=== PATIENT | female | born 1980 | race Caucasian/White ===

== ENCOUNTER 2017-07-19 11:30 | Inpatient (IN) | payer OTHER ==
[2017-07-19] MEDS ORDERED: TERBUTALINE SULFATE 1 MG/ML VIAL IV PRN (12:46)
[2017-07-19] MEDS ORDERED: EPSOM SALT 454 GM TP PRN (12:46)
[2017-07-19] MEDS ORDERED: OLIVE OIL 118 ML BTL MISC PRN (12:46)
[2017-07-19] MEDS ORDERED: OXYTOCIN 20 UNIT in LR 1,000 ML IV PRN (12:46)
--- NOTE | 2017-07-19 12:48 | PDGENHP ---
History and Physical History and Physical: HPI: Patient is a 36 yo that presents to L&D with complaints of contractions since 0100, worse since 0900. She states they are approx every5 min. She denies any LOF. She does report some bloody mucous. She reports +FM. She denies any headaches, visual changes, epigastric pain. EDC:07/18/17 which is based on LMP: 10/10/16 which is known and consistent with Ultrasound at 8 weeks. Her is complicated by: AMA, Rh Negative, rubella NI Review of Systems: Constitutional: Denies any fever, chills, or fatigue HEENT: denies any visual changes, difficulty swallowing, hearing loss Cardiovascular: Denies any chest pain, palpitations, leg swelling Respiratory: denies any cough, wheezing, or shortness of breathe GI: Denies any nausea, vomiting, diarrhea, constipation : denies any dysuria, urgency, frequency, vaginal bleeding Musculoskeletal: denies any muscle or bone pain Skin: denies any rashes Neuro: denies any headache, seizures, lightheadedness, dizziness, or loss of consciousness Psychiatric: denies any depression, anxiety, or SI/HI thoughts HISTORY: Previous OB history: x1, 7#11, TABx1 Past medical history: h/o abnl pap with LEEP, rubella NI Past surgical history: oral surgery Medications: PNV, rhogam Allergies (list reaction): NKDA LABS: Rh: A Neg ABS: Neg Rubella: Non-Immune HbsAg: NR HIV: NR VDRL: NR 1hr: 101 GC: Neg Chlamydia: Neg Pap: Normal GBS: Neg PHYSICAL EXAM: Constitutional: WN, A&Ox3 HEENT: normocephalic atraumatic, supple Heart: RRR, no murmur Chest: CTA-B Abdomen: Soft, nontender, gravid SVE: 3/70/-2 Extremities: trace edema, negative homans sign Neuro: grossly normal Psych: normal affect assessment: Reassuring FHTs, baseline 125 +accels, no decels, moderate variability Contractions: toco q 5 Assessment: 1) [id number] with IUP@40-1wks 2) early labor 3) GBS negative 4) Cat 1 FHR tracing Plan: 1) Admit to L&D 2) expectant management 3) will start pitocin PRN 4) pain management PRN 5) expect
[2017-07-19 13:35] LABS: PLATELET COUNT 127 10^3/uL (150-400)
[2017-07-19] MEDS ORDERED: LIDOCAINE 1% 300 MG/30 ML SDV ONE (14:22)
[2017-07-19] MEDS ORDERED: AMMONIA AROMATIC 1 EACH AMP IH ONE (14:22)
[2017-07-19] MEDS ORDERED: OLIVE OIL 118 ML BTL ONE (14:22)
[2017-07-19] MEDS ORDERED: TERBUTALINE SULFATE 1 MG/ML VIAL ONE (14:23)
[2017-07-19] MEDS ORDERED: MISOPROSTOL 200 MCG TAB ONE (14:23)
[2017-07-19] MEDS ORDERED: OXYTOCIN 10 UNIT/ML VIAL ONE (14:23)
[2017-07-19] MEDS: LR 1,000 ML IV PRN ×2 (14:53→15:51)
[2017-07-19] MEDS ORDERED: BUPIVACAINE 0.25% 30 ML SDV ONE (15:00)
[2017-07-19] MEDS ORDERED: fentaNYL 2MCG/ML/BUP 0.1% RTU 100 ML BAG EP ONE (15:00)
--- NOTE | 2017-07-19 16:01 | PDANEPAE ---
ANE Past Medical History - Cardiovascular History Hx Hypertension: No Hx Arrhythmias: No Hx Chest Pain: No Hx Coronary Artery / Peripheral Vascular Disease: No Hx CHF / Valvular Disease: No Hx Palpitations: No - Pulmonary History Hx COPD: No Hx Asthma/Reactive Airway Disease: No Hx Recent Upper Respiratory Infection: No Hx Oxygen in Use at Home: No Hx Sleep Apnea: No - Neurologic History Hx Cerebrovascular Accident: No Hx Seizures: No Hx Dementia: No - Endocrine History Hx Diabetes: No Hypothyroid: No Hyperthyroid: No Obesity: no - Renal History Hx Renal Disorders: No - Liver History Hx Hepatic Disorders: No - Chronic Pain History Chronic Pain: No ANE Review of Systems Review of Systems: ANE Patient History - Allergies Allergies/Adverse Reactions: No Known Allergies Allergy (Unverified 03/13/15 13:02) - Home Medications Home Medications: Acetaminophen [Pain Reliever] 500 mg PO PRN 07/19/17 [Last Taken Unknown] Vit27&Calcium/Iron/FA [ Rx 1 Tablet (RX)] 1 each PO DAILY 07/19 [Last Taken 07/17/17 21:00] - Smoking Hx Smoking Status: Former smoker ANE Labs/Vital Signs - Labs Result Diagrams: 07/19/17 12:55 - Vital Signs Height: 162.56 cm Weight: 58.513 kg ANE Physical Exam - Airway Neck exam: FROM Mallampati Score: Class 1 Mouth exam: normal dental/mouth exam - Pulmonary Pulmonary: no respiratory distress - Cardiovascular Cardiovascular: regular rate and rhythym - ASA Status ASA Status: II ANE Anesthesia Plan Anesthesia Plan: epidural Urgent/Emergent Case: Anes eval completed preop but documented later for safe timely pt care
[2017-07-19] MEDS ORDERED: ONDANSETRON 4 MG/2 ML VIAL IVP PRN (16:03)
[2017-07-19] MEDS ORDERED: PHENYLEPHRINE HCL 100 MCG/ML SYR IVP PRN (16:03)
[2017-07-19] MEDS ORDERED: METOCLOPRAMIDE 10 MG/2 ML VIAL IVP PRN (16:03)
--- NOTE | 2017-07-19 16:26 | OBPROG ---
Labor Progress Note Assessment/Plan: Assessment: [id number] with IUP@40-1wks (L/8) early labor cat 1 FHR tracing GBS Neg ROBB in place AROM- clear Plan: expectant management reassess 2-4hr/PRN anticipate 07/19/17 16:22 Subjective/Intrapartum Course: 07/19/17 16:24 Pt doing well, comfortable with ROBB. She reports having some pain on right side. She is breathing through contractions. FOB @ BS, supportive. Objective: 07/19/17 12:55 Patient ABO/Rh A NEGATIVE 07/19/17 12:55 - SVE Dilation (cm): 4 Effacement (%): 75 Station: -2 Membranes: AROM Amniotic Fluid Color: Clear - Contraction Pattern Assessment Current Contraction Pattern: Regular - FHR Assessment [place] FHR (bpm): 125 FHR Pattern Variability: Moderate FHR Category: 1 - Procedures Non-surgical Procedures: Amniotomy - AP Antepartum Course: 07/19/17 16:28 routine PNC with BWC; AMA, rh negative (rhogam 05/08/17), rubella nonimmune 07/19/17 16:29 - Physical Exam General Appearance: WD/WN, alert, no apparent distress Abdomen: non-tender, soft Skin: normal color, warm/dry Oxytocin Orders Assessment - Pre-Induction/Augmentation Assessment Gestational Age: 40 week(s) and 1 day(s) ICD10 Worksheet Patient Problems: Problems Problem Status Onset Normal labor Acute Normal labor and delivery Acute Spontaneous vaginal delivery Acute - ICD10 Problem Qualifiers (1) Normal labor and delivery (2) Normal labor
[2017-07-19] MEDS ORDERED: LR 500 ML IV SCH (16:30)
[2017-07-19] MEDS ORDERED: fentaNYL 2MCG/ML/BUP 0.1% RTU 100 ML EP SCH (16:30)
[2017-07-19] MEDS ORDERED: HEMABATE 250 MCG/1 ML AMP IM ONE (18:27)
[2017-07-19] MEDS ORDERED: MISOPROSTOL 200 MCG TAB PR ONE (18:55)
[2017-07-19] MEDS ORDERED: ACETAMINOPHEN 500 MG TAB PO ONE (18:55)
[2017-07-19] MEDS ORDERED: METHYLERGONOVINE MAL 0.2 MG/ML INJ IM ONE (18:55)
[2017-07-19] MEDS ORDERED: ACETAMINOPHEN 500 MG TAB ONE (19:19)
[2017-07-19 19:24] LABS: PLATELET COUNT 113 10^3/uL (150-400)
[2017-07-19] MEDS: IBUPROFEN 600 MG TAB PO PRN (19:27)
[2017-07-19] MEDS ORDERED: CEFAZOLIN 1 GM/DEXTROSE/50 ML BAG IV ONE (19:38)
[2017-07-19] MEDS ORDERED: ceFAZolin 2 GM in D5W 100 ML IV SCH (19:45)
[2017-07-19] MEDS: ceFAZolin 2 GM/DEXTROSE 100 ML IV SCH (19:59)
--- NOTE | 2017-07-19 22:02 | OBDEL ---
Info Type: Vaginal Presentation at Delivery: Vertex L&D Analgesia/Anesthesia Type: Epidural GBS+: No Intrapartum Medications: Generic Name Dose Route Start Last Admin Trade Name Freq PRN Reason Stop Dose Admin Lactated Ringer's 1,000 mls @ 0 mls/hr 07/19/17 12:46 07/19/17 15:51 Lr IV 07/20/17 12:45 1,000 mls PRN PRN Administration SEE PROTOCOL CONDITIONS Protocol Per Protocol Cefazolin Sodium/Dextrose 100 mls @ 200 mls/hr 07/19/17 20:00 07/19/17 19:59 Ancef 2 Gm (Premix) IV 07/20/17 14:29 100 mls Q6H ELBA Administration Ibuprofen 600 mg 07/19/17 12:46 07/19/17 19:27 Motrin PO 01/15/18 12:45 600 mg Q6HRS PRN Administration post , inflammation Ondansetron HCl 4 mg 07/19/17 16:03 07/19/17 18:28 Zofran IVP 07/20/17 16:02 4 mg Q4HRS PRN Administration Nausea/Vomiting, Can't Take PO Discontinued Medications Generic Name Dose Route Start Last Admin Trade Name Freq PRN Reason Stop Dose Admin Acetaminophen 1,000 mg 07/19/17 18:55 07/19/17 19:27 Tylenol PO 07/19/17 18:56 1,000 mg ONCE ONE Administration Oxytocin 20 unit/ Lactated 1,002 mls @ 150 mls/hr 07/19/17 12:46 07/19/17 20: 15 Ringer's IV 1,002 mls PRN PRN Administration Post- bleeding Fentanyl/Bupivacaine HCl 100 mls @ 0 mls/hr 07/19/17 16:30 07/19/17 15:15 Fentanyl/Bupivacaine/Ns 2 Mcg/Ml 0.1% (Premix EP 07/29/17 16:29 100 mls CONT ELBA Administration Protocol As Directed Methylergonovine Maleate 0.2 mg 07/19/17 18:55 07/19/17 18:56 Methergine IM 07/19/17 18:56 0.2 mg ONCE ONE Administration Misoprostol 1,000 mcg 07/19/17 18:55 07/19/17 18:57 Cytotec NM 07/19/17 18:56 1,000 mcg EDNOW ONE Administration [place] Oil 118 ml 07/19/17 12:46 07/19/17 18:15 Sweet Oil MISC 01/15/18 12:45 118 ml ONCE PRN Administration perineal massage Phenylephrine HCl 100 mcg 07/19/17 16:03 07/19/17 16:37 Neosynephrine IVP 01/15/18 16:02 100 mcg .Q2M PRN Administration Hypotension - Hospital Course Intrapartum: 07/19/17 16:24 Pt doing well, comfortable with ROBB. She reports having some pain on right side. She is breathing through contractions. FOB @ BS, supportive. Indications for Delivery: Spontaneous Labor Vaginal Delivery - Delivery Provider Delivery Physician/CNM: Екатерина Sandoval - Labor and Delivery Onset of Contractions Date: 07/19/17 Onset of Contractions Time: 09:30 Onset of Contractions Type: Spontaneous Rupture of Membranes Date: 07/19/17 Rupture of Membranes Time: 15:56 Rupture of Membranes Type: Artificial Amniotic Fluid Color: Clear, Meconium Stained Dilation Complete Date: 07/19/17 Dilation Complete Time: 16:54 Placenta Delivery Date: 07/19/17 Placenta Delivery Time: 18:50 Total Hours of Labor: 9 Non-surgical Procedures: Amniotomy Vaginal Sponge Count Correct: Yes Vaginal Needle Count Correct: Yes Vaginal Sweep Performed: Yes EBL: 1000 Delivery Events: Post Hemorrhage (approx 1000mL) [place] Data ANAHI: 07/18/17 Gestational Age: 40 week(s) and 1 day(s) [place] Delivery Date: 07/19/17 Delivery Time: 18:43 Sex of : Male Score (1 Min): 8 Score (5 Min): 9 ICD10 Worksheet Patient Problems: Problems Problem Status Onset Normal labor Acute Normal labor and delivery Acute hemorrhage Acute Spontaneous vaginal delivery Acute - ICD10 Problem Qualifiers (1) Normal labor and delivery (2) Normal labor (3) hemorrhage
[2017-07-19] MEDS ORDERED: SIMETHICONE 80 MG TAB CHEW PO PRN (22:04)
[2017-07-19] MEDS ORDERED: HYDROCORTISONE 0.5% CREAM TP PRN (22:04)
[2017-07-19] MEDS ORDERED: HYDROCODONE/APAP 5/325 TAB PO PRN (22:04)
[2017-07-19] MEDS ORDERED: DOCUSATE SODIUM 100 MG CAP PO PRN (22:04)
[2017-07-19] MEDS: METHYLERGONOVINE MAL 0.2 MG TAB PO SCH (23:20)
[2017-07-20] MEDS: IBUPROFEN 600 MG TAB PO PRN ×4 (01:45→20:35)
[2017-07-20] MEDS: ceFAZolin 2 GM/DEXTROSE 100 ML IV SCH ×3 (01:56→14:18)
[2017-07-20] MEDS: METHYLERGONOVINE MAL 0.2 MG TAB PO SCH ×4 (04:23→22:21)
--- NOTE | 2017-07-20 08:23 | OBPP ---
Progress Note Assessment/Plan: Assessment: post day 1 s/p and hemorrhage Plan: 07/20/17 10:10 Continue current management Continue methergine continue iron Ibruprofen and [place] for pain 07/20/17 10:15 Subjective/ Course: 07/20/17 10:13 Continues to have cramping pain. and tolerating PO. Objective: 07/20/17 04:30 Patient ABO/Rh A NEGATIVE 07/19/17 19:00 Temp Pulse Resp BP Pulse Ox 36.3 C 65 16 122/67 H 97 07/20/17 01:30 07/20/17 01:30 07/20/17 01:30 07/20/17 01:30 07/20/17 01:30 Uterine Position/Fundal Height: Umbilicus -1 Uterine Tone: Firm Physical Exam - Physical Exam Respiratory: chest non-tender Abdomen: normal bowel sounds, non-tender, soft Extremities: normal range of motion, non-tender Skin: normal color Neuro/Psych: no motor/sensory deficits, alert, normal mood/affect, oriented x 3
[2017-07-21] MEDS: IBUPROFEN 600 MG TAB PO PRN ×2 (04:24→10:47)
[2017-07-21] MEDS: METHYLERGONOVINE MAL 0.2 MG TAB PO SCH (04:25)
[2017-07-21 08:32] VITALS: BP 114/75; PULSE 50; RESP 15; TEMP 97.9; O2SAT 95
--- NOTE | 2017-07-21 09:10 | OBPP ---
Progress Note Assessment/Plan: Assessment: post day 2 s/p and hemorrhage Plan: 07/20/17 10:10 Continue current management Continue methergine continue iron Ibruprofen and [place] for pain 07/20/17 10:15 07/21/17 09:08 Discharge home today Ibuprofen and [place] for pain Subjective/ Course: 07/20/17 10:13 Continues to have cramping pain. and tolerating PO. Objective: 07/20/17 04:30 Patient ABO/Rh A NEGATIVE 07/19/17 19:00 Temp Pulse Resp BP Pulse Ox 36.6 C 50 L 15 114/75 95 07/21/17 08:00 07/21/17 08:00 07/21/17 08:00 07/21/17 08:00 07/21/17 08:00 Uterine Position/Fundal Height: Umbilicus -2 Uterine Tone: Firm Physical Exam - Physical Exam Respiratory: chest non-tender Abdomen: normal bowel sounds, non-tender, flatus Extremities: normal range of motion, non-tender Skin: normal color, warm/dry Neuro/Psych: no motor/sensory deficits, alert, normal mood/affect, oriented x 3
--- NOTE | 2017-07-21 09:14 | OBGCSDC ---
General Delivery Information - General Info : 3 Para: 2 Abortions: 1 Type: Vaginal L&D Analgesia/Anesthesia Type: Epidural Admission Date: 07/19/17 Labs: Patient ABO/Rh A NEGATIVE 07/19/17 19:00 Hct 29.1 % (38.0-47.0) L 07/20/17 04:30 - Hospital Course Antepartum: 07/19/17 16:28 routine PNC with BWC; AMA, rh negative (rhogam 05/08/17), rubella nonimmune 07/19/17 16:29 Intrapartum: 07/19/17 16:24 Pt doing well, comfortable with ROBB. She reports having some pain on right side. She is breathing through contractions. FOB @ BS, supportive. : 07/20/17 10:13 Continues to have cramping pain. and tolerating PO. Vaginal - Delivery Provider Delivery Physician/CNM: Екатерина Sandoval - Diagnosis Labor: Spontaneous Rupture of Membranes Type: Artificial Amniotic Fluid Color: Clear, Meconium Stained Delivery Events: Post Hemorrhage (approx 1000mL) - Procedures Non-surgical Procedures: Amniotomy - Delivery Non-surgical Procedures: Amniotomy EBL: 1000 [place] Data ANAHI: 07/18/17 Gestational Age: 40 week(s) and 3 day(s) [place] Delivery Date: 07/19/17 Delivery Time: 18:43 Sex of : Male Score (1 Min): 8 Score (5 Min): 9 Discharge Information - Discharge Information Prescriptions: Hydrocodone/APAP 5/325 [[place] 5/325 (*)] 1 - 2 tab PO Q4HRS PRN #30 tab PRN Reason: Pain, Moderate Ibuprofen [Motrin (*)] 600 mg PO Q6HRS PRN #30 tab PRN Reason: post , inflammation Docusate Sodium [Colace 100 MG (*)] 100 mg PO BID PRN #30 cap PRN Reason: Constipation Condition: Good Instruction/Follow Up: One Week
== END 2017-07-21 14:45 | disposition home or self-care (01) | DRG 774 ==
LOC: FLD 11:30 → OBSVTOIN 11:30 → FOB 22:30
PROVIDERS: ADMIT Advanced Practice Midwife; ATTEND Obstetrics & Gynecology
PROC: 10907ZC Drainage of Amniotic Fluid, Therapeutic from Products of Conception, Via Natural or Artificial Opening (ICD-10-PCS; principal; 2017-07-19)
PROC: 10E0XZZ Delivery of Products of Conception, External Approach (ICD-10-PCS; principal; 2017-07-19)
DX: O48.0 Post-term pregnancy (principal); O77.0 Labor and delivery complicated by meconium in amniotic fluid; O72.1 Other immediate postpartum hemorrhage; Z3A.40 40 weeks gestation of pregnancy; Z37.0 Single live birth
CPT/HCPCS: J0690; J2405; J3105

== ENCOUNTER → 2018-05-02 | Outpatient (CLI) | payer OTHER | LOC: FIMAGING 10:15 | PROVIDERS: ATTEND Advanced Practice Midwife | DX: O09.521 Supervision of elderly multigravida, first trimester (principal); Z3A.12 12 weeks gestation of pregnancy ==

== ENCOUNTER → 2018-06-27 | Outpatient (CLI) | payer OTHER | LOC: FIMAGING 09:41 | PROVIDERS: ATTEND Advanced Practice Midwife | DX: O09.522 Supervision of elderly multigravida, second trimester (principal); O26.892 Other specified pregnancy related conditions, second trimester; Z3A.20 20 weeks gestation of pregnancy ==

== ENCOUNTER → 2018-09-16 | Outpatient (CLI) | payer OTHER | LOC: FIMAGING 09:08 | PROVIDERS: ATTEND Advanced Practice Midwife | DX: O09.523 Supervision of elderly multigravida, third trimester (principal); Z3A.31 31 weeks gestation of pregnancy ==

== ENCOUNTER 2018-11-02 06:00 | Inpatient (IN) | payer OTHER ==
[2018-11-02] MEDS ORDERED: TERBUTALINE SULFATE 1 MG/ML VIAL IV PRN (07:31)
[2018-11-02] MEDS ORDERED: MISOPROSTOL 200 MCG TAB PO PRN (07:31)
[2018-11-02] MEDS ORDERED: LIDOCAINE 1% 300 MG/30 ML SDV SC PRN (07:31)
[2018-11-02] MEDS ORDERED: EPSOM SALT 454 GM TP PRN (07:31)
[2018-11-02] MEDS ORDERED: LR 1,000 ML IV PRN (07:31)
[2018-11-02] MEDS ORDERED: OLIVE OIL 118 ML BTL MISC PRN (07:31)
[2018-11-02] MEDS ORDERED: IBUPROFEN 600 MG TAB PO PRN (07:31)
[2018-11-02] MEDS ORDERED: OXYTOCIN/RINGERS LACTATE 1,000 ML IV PRN (07:31)
[2018-11-02] MEDS ORDERED: AMMONIA AROMATIC 1 EACH AMP IH PRN (07:31)
[2018-11-02] MEDS ORDERED: MISOPROSTOL 50 MCG CAP PO PRN (07:33)
[2018-11-02 08:26] LABS: PLATELET COUNT 162 10^3/uL (150-400)
--- NOTE | 2018-11-02 08:37 | PDGENHP ---
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 EDC: 11/14/18 which is based on LMP 02/07/18 and early Ultrasound at 9 weeks. Her is complicated by: AMA, rh neg (rhogam on 08/23/09), short interval between pregnancies, Hx of leep in 2010, rubella non-immune, history of PP hemorrhage with last delivery. Review of Systems: Constitutional: Denies any fever, chills, or fatigue HEENT: denies any visual changes, difficulty swallowing, hearing loss Cardiovascular: Denies any chest pain, palpitations, leg swelling Respiratory: denies any cough, wheezing, or shortness of breath GI: Denies any nausea, vomiting, diarrhea, constipation : denies any dysuria, urgency, frequency, vaginal bleeding Musculoskeletal: denies any muscle or bone pain Skin: denies any rashes Neuro: denies any headache, seizures, lightheadedness, dizziness, or loss of consciousness Psychiatric: denies any depression, anxiety, or SI/HI thoughts HISTORY: Previous OB history: 03/2015 7#13 oz boy, 07/2017 7#13 oz boy Social history: , SAHM Family history: non-contributory Past medical history: hx HSV I Past surgical history: none Medications: PNV, fish oil Allergies (list reaction): NKDA LABS: Rh: A- ABS: Neg Rubella: Non-Immune HbsAg: NR HIV: NR VDRL: NR 1hr: 80 GC: Neg Chlamydia: Neg Pap: Normal GBS: neg BMI: (prepreg) 19 PHYSICAL EXAM: Constitutional: WN, A&Ox3 HEENT: normocephalic atraumatic, supple Heart: RRR, no murmur Chest: CTA-B Skin: warm, dry, intact Abdomen: Soft, nontender, gravid SVE: not performed Extremities: trace edema, negative homans sign Neuro: grossly normal Psych: normal affect assessment: FHT baseline 125, +accels, no decels, moderate variability Contractions: toco irregular Assessment: 1) 38 yo with IUP@ 38.3 weeks 2) GBS neg 3) Cat 1 FHR tracing 4) induction prior to 39 weeks d/t MFM recommendation 2/2 umbilical cord varices seen on u/s at 38 weeks. Plan: 1) Admit to L&D 2) Cervical ripening 3) Pitocin augmentation 4) ROBB as desired 5) Anticipate
[2018-11-02] MEDS ORDERED: fentaNYL 2MCG/ML/BUP 0.1% RTU 100 ML BAG EP ONE (17:10)
[2018-11-02] MEDS ORDERED: BUPIVACAINE 0.25% 10 ML SDV ONE (17:10)
--- NOTE | 2018-11-02 17:24 | OBPROG ---
Labor Progress Note Assessment/Plan: Assessment: 38yo with IUP@ 38-2wks IOL 2/2 umbilical varicosity AMA h/o PPH cat 1 FHR tracing Plan: AROM once comfortable with ROBB pitocin PRN anticipate 11/02/18 17:20 Subjective/Intrapartum Course: 11/02/18 17:24 Pt doing ok. she is breathing through contractions, but states they are 3/10. She denies any LOF, VB. She desires ROBB prior to AROM. Objective: 11/02/18 08:00 Patient ABO/Rh A NEGATIVE 11/02/18 08:00 - SVE Dilation (cm): 6 Effacement (%): 50 Station: -2 - Contraction Pattern Assessment Current Contraction Pattern: Regular - FHR Assessment [place] FHR (bpm): 145 FHR Pattern Variability: Moderate FHR Category: 1 Oxytocin Orders Assessment - Pre-Induction/Augmentation Assessment Gestational Age: 38 week(s) and 2 day(s) ICD10 Worksheet Patient Problems: Problems Problem Status Onset AMA (advanced maternal age) multigravida 35+ Acute Encounter for induction of labor Acute complicated by umbilical cord varix, antepartum Acute Short interval between pregnancies affecting , antepartum Acute Normal labor Acute - ICD10 Problem Qualifiers (1) Encounter for induction of labor (2) AMA (advanced maternal age) multigravida 35+ (3) Short interval between pregnancies affecting , antepartum (4) complicated by umbilical cord varix, antepartum
[2018-11-02] MEDS ORDERED: PHENYLEPHRINE HCL 100 MCG/ML SYR IVP PRN (17:56)
[2018-11-02] MEDS ORDERED: NALOXONE HCL 0.4 MG/ML INJ IVP PRN (17:56)
[2018-11-02] MEDS ORDERED: ONDANSETRON 4 MG/2 ML VIAL IVP PRN (17:56)
--- NOTE | 2018-11-02 17:58 | PREANESOB ---
Obstetric Pre-Anesthesia Info - General Info : 4 Para: 2 ANAHI: 11/14/18 Gestational Age: 38 week(s) and 2 day(s) - Info Status: Full Term FHR Pattern: Reassuring - Labor Status Cervical Dilation per last OB SVE: 6 Station per last OB SVE: -2 Indications for Labor Analgesia: Pain Control Labor Epidural: Proposed Anesthesia Allergies/Adverse Reactions: Allergy/AdvReac Type Severity Reaction Status Date / Time No Known Allergies Allergy Unverified 03/13/15 13:02 Home Medications: Medication Instructions Recorded Ibuprofen [Motrin (*)] 600 mg PO Q6 PRN #0 tab 03/15/15 Acetaminophen [Pain Reliever] 500 mg PO PRN 07/19/17 Vit27&Calcium/Iron/FA 1 each PO DAILY 07/19/17 [ Rx 1 Tablet (RX)] Docusate Sodium [Colace 100 MG (*)] 100 mg PO BID PRN #30 cap 07/21/17 Hydrocodone/APAP 5/325 [[place] 1 - 2 tab PO Q4HRS PRN #30 tab 07/21/17 5/325 (*)] Ibuprofen [Motrin (*)] 600 mg PO Q6HRS PRN #30 tab 07/21/17 Visit Medications: Generic Name Dose Route Start Last Admin Trade Name [place] PRN Reason Stop Dose Admin Ammonia (Aromatic Spirit) 1 each 11/02/18 07:31 Ammonia Aromatic IH 11/12/18 07:30 ONCE PRN Fainting Lactated Ringer's 1,000 mls @ 0 mls/hr 11/02/18 07:31 Lr IV 11/03/18 07:30 PRN PRN SEE PROTOCOL CONDITIONS Protocol Per Protocol Oxytocin/Lactated Ringer's 1,000 mls @ 0 mls/hr 11/02/18 07:31 Pitocin 20 Units/Lr (Premix) IV PRN PRN Post bleeding As Directed Fentanyl/Bupivacaine HCl 100 mls @ 0 mls/hr 11/02/18 18:00 Fentanyl/Bupivacaine/Ns 2 Mcg/Ml 0.1% (Premix EP 11/12/18 17:59 CONT ELBA Protocol As Directed Lactated Ringer's 500 mls @ 0 mls/hr 11/02/18 18:00 Lr IV 05/01/19 17:59 CONT ELBA As Directed Ibuprofen 600 mg 11/02/18 07:31 Motrin PO ONCE PRN post , pain Lidocaine HCl 300 mg 11/02/18 07:31 Lidocaine Hcl 1% SC 05/01/19 07:30 ONCE PRN episiotomy Magnesium Sulfate 454 gm 11/02/18 07:31 Epsom Salt TP 05/01/19 07:30 Q1H PRN perineal discomfort Misoprostol 800 - 1,000 mcg 11/02/18 07:31 Cytotec PO 05/01/19 07:30 ONCE PRN Vaginal Atony/Bleeding Misoprostol 50 mcg 11/02/18 07:33 11/02/18 11:13 Cytotec PO 05/01/19 07:32 50 mcg Q4H PRN Administration cervical ripening Naloxone HCl 0.4 mg 11/02/18 17:56 Narcan IVP 05/01/19 17:55 PRN PRN Respiratory depression [place] Oil 118 ml 11/02/18 07:31 Sweet Oil MISC 05/01/19 07:30 ONCE PRN perineal massage Ondansetron HCl 4 mg 11/02/18 17:56 Zofran IVP 11/03/18 17:55 Q4HRS PRN Nausea/Vomiting, Can't Take PO Terbutaline Sulfate 0.25 mg 11/02/18 07:31 Brethine IV 05/01/19 07:30 ONCE PRN Tachysystole Discontinued Medications Generic Name Dose Route Start Last Admin Trade Name Freq PRN Reason Stop Dose Admin Bupivacaine HCl Confirm 11/02/18 17:10 Sensorcaine 0.25% Sdv Administered 11/02/18 17:11 Dose 10 ml .ROUTE .STK-MED ONE Fentanyl/Bupivacaine HCl Confirm 11/02/18 17:10 Fentanyl/Bupivacaine/Ns 2 Mcg/Ml 0.1% (Premix Administered 11/02/18 17:11 Dose 100 ml EP .STK-MED ONE - Vital Signs Height/Weight (Nursing): Height 162.56 cm Weight 57.153 kg Labs: 11/02/18 08:00 Patient ABO/Rh A NEGATIVE 11/02/18 08:00
[2018-11-02] MEDS ORDERED: fentaNYL 2MCG/ML/BUP 0.1% RTU 100 ML EP SCH (18:00)
[2018-11-02] MEDS ORDERED: LR 500 ML IV SCH (18:00)
[2018-11-02] MEDS ORDERED: LIDOCAINE 1% 300 MG/30 ML SDV ONE (18:42)
[2018-11-02] MEDS ORDERED: OLIVE OIL 118 ML BTL MISC ONE (18:42)
[2018-11-02] MEDS ORDERED: AMMONIA AROMATIC 1 EACH AMP IH ONE (18:42)
[2018-11-02] MEDS ORDERED: TERBUTALINE SULFATE 1 MG/ML VIAL ONE (18:43)
[2018-11-02] MEDS ORDERED: MISOPROSTOL 200 MCG TAB ONE (18:43)
[2018-11-02] MEDS ORDERED: OXYTOCIN 10 UNIT/ML VIAL ONE (18:43)
[2018-11-02] MEDS ORDERED: METHYLERGONOVINE MAL 0.2 MG/ML INJ ONE (21:30)
--- NOTE | 2018-11-02 21:57 | OBDEL ---
Info Type: Vaginal (IOL 2/2 umbilical varicosity) Presentation at Delivery: Vertex L&D Analgesia/Anesthesia Type: Epidural GBS+: No Intrapartum Medications: Generic Name Dose Route Start Last Admin Trade Name Freq PRN Reason Stop Dose Admin Lactated Ringer's 1,000 mls @ 0 mls/hr 11/02/18 07:31 11/02/18 20:08 Lr IV 11/03/18 07:30 1,000 mls PRN PRN Administration SEE PROTOCOL CONDITIONS Protocol Per Protocol Misoprostol 50 mcg 11/02/18 07:33 11/02/18 11:13 Cytotec PO 05/01/19 07:32 50 mcg Q4H PRN Administration cervical ripening - Hospital Course Intrapartum: 11/02/18 17:24 Pt doing ok. she is breathing through contractions, but states they are 3/10. She denies any LOF, VB. She desires ROBB prior to AROM. Vaginal Delivery - Delivery Provider Delivery Physician/CNM: Екатерина Sandoval - Labor and Delivery Onset of Contractions Date: 11/02/18 Onset of Contractions Time: 17:00 Onset of Contractions Type: Induced Rupture of Membranes Date: 11/02/18 Rupture of Membranes Time: 18:15 Rupture of Membranes Type: Artificial Amniotic Fluid Color: Clear Dilation Complete Date: 11/02/18 Dilation Complete Time: 20:32 Placenta Delivery Date: 11/02/18 Placenta Delivery Time: 21:28 Total Hours of Labor: 4 Non-surgical Procedures: Amniotomy Vaginal Sponge Count Correct: Yes Vaginal Needle Count Correct: Yes Vaginal Sweep Performed: Yes EBL: 350 Delivery Events: Other (Specify) (cord around leg/foot) Delivery Comment: baby delivered without difficulty. spontaneous cry at . baby to mothers chest. - Medications Labor Augmentation/Induction Methods Used: Misoprostol, [place] Data ANAHI: 11/14/18 Gestational Age: 38 week(s) and 2 day(s) [place] Delivery Date: 11/02/18 Delivery Time: 21:19 Sex of Infant: Male Score (1 Min): 8 Score (5 Min): 9 ICD10 Worksheet Patient Problems: Problems Problem Status Onset AMA (advanced maternal age) multigravida 35+ Acute Encounter for induction of labor Acute complicated by umbilical cord varix, antepartum Acute (spontaneous vaginal delivery) Acute Short interval between pregnancies affecting , antepartum Acute Normal labor Acute - ICD10 Problem Qualifiers (1) Encounter for induction of labor (2) AMA (advanced maternal age) multigravida 35+ (3) Short interval between pregnancies affecting , antepartum (4) complicated by umbilical cord varix, antepartum (5) (spontaneous vaginal delivery)
[2018-11-02] MEDS ORDERED: SIMETHICONE 80 MG TAB CHEW PO PRN (22:02)
[2018-11-02] MEDS ORDERED: HYDROCORTISONE 0.5% CREAM TP PRN (22:02)
[2018-11-02] MEDS ORDERED: DOCUSATE SODIUM 100 MG CAP PO PRN (22:02)
[2018-11-02] MEDS ORDERED: oxyCODONE IR 5 MG TAB PO PRN (22:02)
[2018-11-02] MEDS ORDERED: OXYTOCIN/RINGERS LACTATE 500 ML IV SCH (22:30)
[2018-11-03] MEDS: IBUPROFEN 600 MG TAB PO PRN ×4 (04:23→23:55)
--- NOTE | 2018-11-03 09:04 | OBPP ---
Progress Note Assessment/Plan: Assessment: 1. PP day 1 2. Breast feeding difficulty 3. Plan: 1. D/c home tomorrow 2. support today. 11/03/18 09:03 Subjective/ Course: 11/03/18 09:04 pt feeling good. slept well last night. pain management effective. voiding, passing gas. Objective: 11/02/18 08:00 Patient ABO/Rh A NEGATIVE 11/03/18 01:10 Temp Pulse Resp BP Pulse Ox 36.8 C 58 L 16 114/75 11/03/18 01:06 11/03/18 01:06 11/03/18 01:06 11/03/18 01:06 VSS Uterine Position/Fundal Height: At Umbilicus Uterine Tone: Firm
[2018-11-03] MEDS: ACETAMINOPHEN 325 MG TAB PO PRN ×3 (10:30→23:54)
[2018-11-04] MEDS: IBUPROFEN 600 MG TAB PO PRN ×2 (06:15→13:03)
[2018-11-04] MEDS: ACETAMINOPHEN 325 MG TAB PO PRN (06:15)
[2018-11-04 08:24] VITALS: BP 100/61
--- NOTE | 2018-11-04 09:31 | OBGCSDC ---
General Delivery Information - General Info : 4 Para: 3 Abortions: 0 Type: Vaginal (IOL 2/2 umbilical varicosity) L&D Analgesia/Anesthesia Type: Epidural Admission Date: 11/02/18 Labs: Patient ABO/Rh A NEGATIVE 11/03/18 01:10 Hct 37.5 % (38.0-47.0) L 11/02/18 08:00 - Hospital Course Intrapartum: 11/02/18 17:24 Pt doing ok. she is breathing through contractions, but states they are 3/10. She denies any LOF, VB. She desires ROBB prior to AROM. : 11/03/18 09:04 pt feeling good. slept well last night. pain management effective. voiding, passing gas. 11/04/18 09:35 doing well. some tenderness on L nipple. will continue with shells for now. bleeding wnl. Vaginal - Delivery Provider Delivery Physician/CNM: Екатерина Sandoval - Diagnosis Labor: Induced Rupture of Membranes Type: Artificial Amniotic Fluid Color: Clear Delivery Events: Other (Specify) (cord around leg/foot) - Procedures Non-surgical Procedures: Amniotomy - Delivery Non-surgical Procedures: Amniotomy EBL: 350 [place] Data ANAHI: 11/14/18 Gestational Age: 38 week(s) and 4 day(s) [place] Delivery Date: 11/02/18 Delivery Time: 21:19 Sex of Infant: Male [place] Weight (gm): 3305 g Score (1 Min): 8 Score (5 Min): 9 Discharge Information - Discharge Information Condition: Good Instruction/Follow Up: Two Weeks, Four Weeks, Six Weeks
[2018-11-04] MEDS ORDERED: MEASLES,MUMPS&RUBELLA VACC/PF 0.5 ML VIAL SC ONE (09:40)
--- NOTE | 2018-11-04 11:46 | POSTANESTH ---
Post Anesthetic Evaluation Cardiovascular Status: Normal, Stable Respiratory Status: Normal, Stable Level of Consciousness/Mental Status: Can Participate in Eval Pain Control: Adequate, Prn Tx Ordered Nausea/Vomiting Control: Adequate, Prn Tx Ordered Complications Possibly Related to Anesthesia: None Noted (Pt doing well post ROBB. No backache, no headache.)
== END 2018-11-04 13:30 | disposition home or self-care (01) | DRG 807 ==
LOC: FLD 06:30 → FOB 11-03 00:50
PROVIDERS: ADMIT Obstetrics & Gynecology; ATTEND Advanced Practice Midwife
DX: O69.5XX0 Labor and delivery complicated by vascular lesion of cord, not applicable or unspecified (principal); Z37.0 Single live birth; Z3A.38 38 weeks gestation of pregnancy
CPT/HCPCS: J2210; J2405; J2590; J3105

== ENCOUNTER → 2018-11-12 | Outpatient (CLI) | payer OTHER | LOC: FLACT 12:22 ==